=== PATIENT | female | born 1990 | race Two or more races ===

== ENCOUNTER → 2024-11-27 | Emergency (ER) | payer BC ==
[~2024-11-27] VITALS: Ht 162.6 cm; Wt 68.0 kg
[~2024-11-27] MED LIST: DEXAMETHASONE SODIUM PHOSPHATE 4 MG/ML VIAL IM ONE; DEXAMETHASONE SODIUM PHOSPHATE 4 MG/ML VIAL ONE; IBUPROFEN800 MG PO; KETOROLAC TROMETHAMINE 60 MG VIAL IM ONE; ORPHENADRINE CITRATE 30 MG/ML AMPUL IM ONE; ORPHENADRINE CITRATE 30 MG/ML AMPUL ONE
[2024-11-27 08:49] VITALS: BP 116/76; O2SAT 99
== END | disposition home or self-care (01) ==
LOC: ER 08:35
DX: M94.0 Chondrocostal junction syndrome [Tietze] (principal); E03.8 Other specified hypothyroidism; Z88.0 Allergy status to penicillin